=== PATIENT | female | born 1980 | race Caucasian/White ===

== ENCOUNTER 2020-01-20 15:27 | Emergency (ER) | payer OTHER ==
--- NOTE | 2020-01-20 16:11 | EDM.PDOC ---
ED HPI GENERAL MEDICAL PROBLEM - General Chief Complaint: Flank Pain Stated Complaint: POSSIBLE KIDNEY STONES Time Seen by Provider: 01/20/20 15:45 Source of Information: Reports: Patient History Limitations: Reports: No Limitations - History of Present Illness INITIAL COMMENTS - FREE TEXT/NARRATIVE: 39-year-old female with a history of renal stones, lithotripsy x2, developed right flank plain just under 24 hours ago that was a "10" for several hours. Today the pain is been waxing and waning with nausea and vomiting, some urinary urgency but no dysuria, no fevers or chills. The pain is in the right flank and radiates around to the lower right abdomen. She is not Onset: Sudden (Sudden onset about 24 hours ago) Location: Reports: Other (Right flank and right lower abdomen) Associated Symptoms: Reports: Nausea/Vomiting Right Flank Pain Score (Numeric/FACES): 3 - Related Data Allergies Allergy/AdvReac Type Severity Reaction Status Date / Time cefoxitin [From Mefoxin] Allergy Itching Verified 01/20/20 15:45 codeine Allergy Airway Verified 01/20/20 15:45 Tightness Home Meds: Home Meds Albuterol [Ventolin HFA] 2 puff IH Q4HR PRN 01/20/20 [History] Past Medical History Cardiovascular History: Reports: Other (See Below) Other Cardiovascular History: occ pvc Respiratory History: Reports: Asthma Gastrointestinal History: Reports: Cholelithiasis SINK CUTTER History: Reports: Endometriosis Other SINK CUTTER History: breast reduction Neurological History: Reports: Migraines Dermatologic History: Reports: Eczema - Past Surgical History GI Surgical History: Reports: Cholecystectomy Female Surgical History: Reports: Section, Lithotripsy/ESWL Social & Family History - Tobacco Use Smoking Status *Q: Never Smoker - Caffeine Use Caffeine Use: Reports: Coffee - Recreational Drug Use Recreational Drug Use: No ED ROS GENERAL - Review of Systems Review Of Systems: See Below Constitutional: Reports: Malaise. Denies: Fever, Chills HEENT: Reports: No Symptoms Respiratory: Denies: Shortness of Breath Cardiovascular: Denies: Chest Pain GI/Abdominal: Reports: Abdominal Pain, Nausea, Vomiting. Denies: Diarrhea : Reports: Flank Pain, Urgency. Denies: Dysuria, Frequency, Hematuria, Incontinence Musculoskeletal: Reports: No Symptoms Skin: Reports: No Symptoms Neurological: Denies: Headache ED EXAM, GENERAL - Physical Exam Exam: See Below Exam Limited By: No Limitations General Appearance: Alert, No Apparent Distress Head: Atraumatic Respiratory/Chest: No Respiratory Distress, Lungs Clear Cardiovascular: Regular Rate, Rhythm GI/Abdominal: Non-Tender Back Exam: No: CVA Tenderness (R), CVA Tenderness (L) Neurological: Alert, Oriented Psychiatric: Normal Affect, Normal Mood Skin Exam: Warm, Dry Course - Vital Signs Last Recorded V/S: Last Vital Signs Temp 97.9 F 01/20/20 15:42 Pulse 95 01/20/20 15:42 Resp 16 01/20/20 15:42 BP 146/84 H 01/20/20 15:42 Pulse Ox 97 01/20/20 15:42 - Orders/Labs/Meds Labs: Laboratory Tests 01/20/20 Range/Units 16:08 Urine Color Yellow (YELLOW) Urine Appearance Clear (CLEAR) Urine pH 6.5 (5.0-8.0) Ur Specific [place] 1.025 (1.008-1.030) Urine Protein Negative (NEGATIVE) mg/dL Urine Glucose (UA) Negative (NEGATIVE) mg/dL Urine Ketones Negative (NEGATIVE) mg/dL Urine Occult Blood Moderate H (NEGATIVE) Urine Nitrite Negative (NEGATIVE) Urine Bilirubin Negative (NEGATIVE) Urine Urobilinogen 0.2 (0.2-1.0) EU/dL Ur Leukocyte Esterase Negative (NEGATIVE) Urine RBC 20-30 H (0-5) Urine WBC 5-10 H (0-5) Ur Epithelial Cells Moderate Amorphous Sediment Not seen Urine Bacteria Few Urine Mucus Few Meds: Medications Discontinued Medications Generic Name Dose Route Start Last Admin Trade Name Keri PRN Reason Stop Dose Admin Tamsulosin HCl 0.4 mg 01/20/20 16:56 01/20/20 16:59 Flomax PO 01/20/20 16:57 0.4 mg ONETIME ONE Administration - Re-Assessments/Exams Free Text/Narrative Re-Assessment/Exam: 01/20/20 16:11 A UA was collected and a CT of the abdomen and pelvis without contrast will be obtained. 01/20/20 17:38 IMPRESSION: 1. Acutely obstructing 9 x 6 x 6 mm distal right ureteral stone within 1 cm of the UVJ. 2. Renal collecting system stone bilaterally, as above. 3. Post cholecystectomy. UA was positive for small amount of blood but no infection. CT findings are as above. Patient was given 1 Flomax, 5 additional doses of Zofran and will recheck in 2 to 3 days if not improved. Departure - Departure Time of Disposition: 17:21 Disposition: Home, Self-Care 01 Clinical Impression: Ureteric colic, Left nephrolithiasis Hydronephrosis Qualifiers: Hydronephrosis type: with ureteral calculous obstruction Qualified Code(s): N13.2 - Hydronephrosis with renal and ureteral calculous obstruction - Discharge Information Instructions: Kidney Stones, [id number] Referrals: Seymour Paige MD [Primary Care Provider] - Forms: ED Department Discharge Care Plan Goals: Take ibuprofen for pain, Zofran for nausea and vomiting and consider rechecking in 2 to 3 days if not improving satisfactorily. Return anytime if worsening despite treatment. Sepsis Event Note - Evaluation Sepsis Screening Result: No Definite Risk - Focused Exam Vital Signs: Vital Signs Temp Pulse Resp BP Pulse Ox 01/20/20 15:42 97.9 F 95 16 146/84 H 97 Date Exam was Performed: 01/20/20 Time Exam was Performed: 17:40
[2020-01-20] MEDS ORDERED: Tamsulosin 0.4 MG Cap.ER PO ONE (16:56)
--- NOTE | 2020-01-20 17:17 | CRLCT ---
INDICATION: Flank pain. TECHNIQUE: Volumetric helical scanning of the abdomen pelvis was performed without IV contrast material. Coronal sagittal reconstructions were obtained. FINDINGS: Acutely obstructing 9 x 6 x 6 mm distal right ureteral stones demonstrated within 1 cm of the ureterovesical junction. Moderate right hydroureter and hydronephrosis is demonstrated as well as right periureteral and perinephric stranding. An additional 9 mm stone is present in the right renal collecting system along with 3 additional stones measuring 3 mm or less in size. Several 2 mm stones noted in the left renal collecting system. The kidneys are otherwise unremarkable. The bladder is grossly negative. The uterus and ovaries are grossly negative. No free fluid is evident. The liver is normal in size, shape and attenuation. Post op changes of cholecystectomy are demonstrated. No bile duct dilation is evident. The spleen is within normal limits. The adrenal glands are unremarkable. The pancreas is within normal limits. No lymphadenopathy is evident. The bowel is unremarkable. The lung bases are clear. The heart is normal in size. IMPRESSION: 1. Acutely obstructing 9 x 6 x 6 mm distal right ureteral stone within 1 cm of the UVJ. 2. Renal collecting system stone bilaterally, as above. 3. Post cholecystectomy. Please note that all CT scans at this facility use dose modulation, iterative reconstruction, and/or weight-based dosing when appropriate to reduce radiation dose to as low as reasonably achievable. Dictated by Ravinder Nelson MD @ Jan 20 2020 5:03PM Signed by Dr. Ravinder Nelson @ Jan 20 2020 5:16PM
== END 2020-01-20 17:28 | disposition home or self-care (01) ==
LOC: JP.ED 15:27
DX: N13.2 Hydronephrosis with renal and ureteral calculous obstruction (principal); J45.909 Unspecified asthma, uncomplicated; Z87.442 Personal history of urinary calculi; Z88.1 Allergy status to other antibiotic agents; Z88.5 Allergy status to narcotic agent
CPT/HCPCS: 74176; 81001; 99284; A9270

== ENCOUNTER 2023-08-14 00:18 | Emergency (ER) | payer OTHER ==
[2023-08-14] MEDS ORDERED: Sodium Chloride 0.9% 10 ML Syringe FLUSH PRN (00:43)
[2023-08-14] MEDS ORDERED: EPINEPHrine 1 MG/ML SDV IM ONE (00:43)
[2023-08-14] MEDS ORDERED: methylPREDNISolone Sodium Succinate 125 MG/2 ML SDV IV ONE (00:43)
== END 2023-08-14 03:23 | disposition home or self-care (01) ==
LOC: JP.ED 00:18
DX: T78.40XA Allergy, unspecified, initial encounter (principal); J45.909 Unspecified asthma, uncomplicated; Z79.899 Other long term (current) drug therapy; Z88.0 Allergy status to penicillin; Z88.5 Allergy status to narcotic agent; Z91.018 Allergy to other foods
CPT/HCPCS: 96372; 96374; 99283; J0171; J2930; J3490

== ENCOUNTER 2023-09-18 20:32 | Emergency (ER) | payer OTHER ==
[2023-09-18] MEDS: methylPREDNISolone Sodium Succinate 125 MG/2 ML SDV IVPUSH ONE (21:00)
== END 2023-09-18 21:39 | disposition home or self-care (01) ==
LOC: JP.ED 20:32
DX: R59.0 Localized enlarged lymph nodes (principal); T78.1XXA Other adverse food reactions, not elsewhere classified, initial encounter; J45.909 Unspecified asthma, uncomplicated; Z79.899 Other long term (current) drug therapy; Z88.5 Allergy status to narcotic agent; Z91.018 Allergy to other foods; Z88.0 Allergy status to penicillin
CPT/HCPCS: 96374; 99283; J2930

== ENCOUNTER 2023-09-29 19:03 | Emergency (ER) | payer OTHER ==
[2023-09-29] MEDS ORDERED: Acyclovir 200 MG Cap PO ONE (19:59)
== END 2023-09-29 20:14 | disposition home or self-care (01) ==
LOC: JP.ED 19:03
DX: B00.1 Herpesviral vesicular dermatitis (principal); J45.909 Unspecified asthma, uncomplicated; Z90.49 Acquired absence of other specified parts of digestive tract; Z79.899 Other long term (current) drug therapy; Z91.048 Other nonmedicinal substance allergy status; Z88.5 Allergy status to narcotic agent; Z88.8 Allergy status to other drugs, medicaments and biological substances
CPT/HCPCS: 99283; A9270

== ENCOUNTER 2024-02-05 11:25 | Emergency (ER) | payer OTHER ==
[2024-02-05 14:41] LABS: APPEARANCE,URINE CLEAR (CLEAR); BILIRUBIN,URINE NEGATIVE (NEGATIVE); COLOR,URINE YELLOW (YELLOW); GLUCOSE,URINE NEGATIVE (NEGATIVE); KETONES,URINE NEGATIVE (NEGATIVE); LEUKOCYTE ESTERASE,URINE NEGATIVE (NEGATIVE); NITRITE,URINE NEGATIVE (NEGATIVE); OCCULT BLOOD,URINE NEGATIVE (NEGATIVE); PROTEIN,URINE NEGATIVE (NEGATIVE); UROBILINOGEN,URINE 0.2 EU/dL (0.2-1.0)
[2024-02-05 14:43] LABS: BASOPHILS ABSOLUTE AUTO 0.04 K/uL (0.00-0.10); BASOPHILS PERCENT AUTO 0.5 % (0.1-1.3); EOSINOPHILS PERCENT AUTO 0.1 % (0.0-5.4); HEMATOCRIT 39.4 % (34.3-46.0); IMMATURE GRAN ABSOLUTE AUTO 0.03 K/uL (0.00-0.23); IMMATURE GRAN PERCENT AUTO 0.4 % (0.0-0.7); LYMPHOCYTES ABSOLUTE AUTO 0.59 K/uL (0.8-3.3); LYMPHOCYTES PERCENT AUTO 7.4 % (11.4-47.7); MEAN CORPUSCULAR HEMOGLOBIN 26.4 pg (31.6-35.5); MEAN CORPUSCULAR VOLUME 80.1 fL (81.4-99.0); MONOCYTES ABSOLUTE AUTO 0.62 K/uL (0.20-0.90); MONOCYTES PERCENT AUTO 7.8 % (3.3-12.6); NEUTROPHILS ABSOLUTE AUTO 6.69 K/uL (1.0-7.6); NEUTROPHILS PERCENT AUTO 83.8 % (40.0-78.1); PLATELET COUNT,PLT 183 K/uL (130-375); RED BLOOD CELL COUNT 4.92 M/uL (3.77-5.24)
[2024-02-05] MEDS: Sodium Chloride 0.9% 1,000 ML IV STA (14:45)
[2024-02-05 14:47] LABS: EOSINOPHILS ABSOLUTE AUTO 0.01 K/uL (0.00-0.40)
[2024-02-05 14:47] LABS: AMORPHOUS SEDIMENT,URINE NOT SEEN; BACTERIA,URINE RARE; EPITHELIAL CELLS,URINE NOT SEEN; MUCUS,URINE NOT SEEN; RBC,URINE 0-5 (0-5); WBC,URINE 0-5 (0-5)
[2024-02-05 15:07] LABS: A/G RATIO 0.9 (1.2-2.2); ALANINE AMINOTRANSFERASE,ALT 18 U/L (12-78); ALBUMIN 3.6 g/dL (3.4-5.0); ALKALINE PHOSPHATASE 132 U/L (46-116); ANION GAP 14.9 mmol/L (5.0-14.0); ASPARTATE AMNIOTRANSFERASE,AST 18 U/L (15-37); BILIRUBIN TOTAL 1.5 mg/dL (0.2-1.0); BLOOD UREA NITROGEN,BUN 11 mg/dL (7-18); C-REACTIVE PROTEIN 6.15 mg/dL (<0.50); CALCIUM 8.8 mg/dL (8.5-10.1); CARBON DIOXIDE,CO2 26 mmol/L (21-32); CHLORIDE,CL 99 mmol/L (100-108); CREATININE 0.9 mg/dL (0.6-1.0); ESTIMATED GFR 81 mL/min (>60); GLUCOSE RANDOM 107 mg/dL (74-106); POTASSIUM,K 3.9 mmol/L (3.6-5.2); PROTEIN TOTAL,TP 7.7 g/dL (6.4-8.2); SODIUM,NA 136 mmol/L (140-148)
[2024-02-05] MEDS: Sodium Chloride 0.9% 100 ML IV ONE (15:29)
[2024-02-05] MEDS: Iopamidol 612 MG/ML 100 ML Bottle IV ONE (15:29)
[2024-02-05] MEDS: Sodium Chloride 0.9% 10 ML Syringe FLUSH ONE (15:29)
[2024-02-05] MEDS: Sodium Chloride 0.9% 10 ML Syringe FLUSH PRN (16:12)
== END 2024-02-05 22:15 | disposition home or self-care (01) ==
LOC: JP.ED 11:25
DX: N83.202 Unspecified ovarian cyst, left side (principal); J45.909 Unspecified asthma, uncomplicated; Z91.018 Allergy to other foods; Z88.5 Allergy status to narcotic agent; Z88.1 Allergy status to other antibiotic agents; Z79.51 Long term (current) use of inhaled steroids; Z86.19 Personal history of other infectious and parasitic diseases; Z90.49 Acquired absence of other specified parts of digestive tract
CPT/HCPCS: 36415; 74177; 76830; 76856; 80053; 81001; 83605; 83690; 84145; 85025; 86140; 87651; 99284; J3490; J7030; Q9967

== ENCOUNTER 2025-07-04 01:09 | Emergency (ER) | payer OTHER ==
[2025-07-04 02:02] LABS: BASOPHILS ABSOLUTE AUTO 0.04 K/uL (0.00-0.10); BASOPHILS PERCENT AUTO 0.6 % (0.1-1.3); EOSINOPHILS ABSOLUTE AUTO 0.13 K/uL (0.00-0.40); EOSINOPHILS PERCENT AUTO 1.9 % (0.0-5.4); IMMATURE GRAN PERCENT AUTO 0.3 % (0.0-0.7); LYMPHOCYTES ABSOLUTE AUTO 2.42 K/uL (0.8-3.3); LYMPHOCYTES PERCENT AUTO 35.7 % (11.4-47.7); MONOCYTES ABSOLUTE AUTO 0.60 K/uL (0.20-0.90); MONOCYTES PERCENT AUTO 8.9 % (3.3-12.6); NEUTROPHILS ABSOLUTE AUTO 3.56 K/uL (1.0-7.6); NEUTROPHILS PERCENT AUTO 52.6 % (40.0-78.1); PLATELET COUNT,PLT 209 K/uL (130-375); RED BLOOD CELL COUNT 4.74 M/uL (3.77-5.24); WHITE BLOOD CELL COUNT,WBC 6.8 K/uL (3.2-11.0)
[2025-07-04 02:06] LABS: IMMATURE GRAN ABSOLUTE AUTO 0.02 K/uL (0.00-0.23)
[2025-07-04 02:21] LABS: BLOOD UREA NITROGEN,BUN 15 mg/dL (7-18); CARBON DIOXIDE,CO2 28 mmol/L (21-32); CHLORIDE,CL 105 mmol/L (100-108); CREATININE 0.7 mg/dL (0.6-1.0); ESTIMATED GFR 109 mL/min (>60); GLUCOSE RANDOM 102 mg/dL (74-106); POTASSIUM,K 3.6 mmol/L (3.6-5.2); SODIUM,NA 142 mmol/L (140-148); TROPONIN I HIGH SENSITIVITY 5.5 pg/mL (<=60.3)
[2025-07-04] MEDS: Ondansetron 4 MG Tab.DIS PO ONE (03:11)
== END 2025-07-04 03:12 | disposition home or self-care (01) ==
LOC: JP.ED 01:09
DX: R00.2 Palpitations (principal); J45.909 Unspecified asthma, uncomplicated; Z88.5 Allergy status to narcotic agent; Z91.018 Allergy to other foods; Z79.899 Other long term (current) drug therapy
CPT/HCPCS: 36415; 80048; 84484; 85025; 85379; 93005; 93010; 99283; 99285

== ENCOUNTER 2025-07-19 06:05 | Emergency (ER) | payer OTHER ==
[2025-07-19 06:42] LABS: BASOPHILS ABSOLUTE AUTO 0.04 K/uL (0.00-0.10); BASOPHILS PERCENT AUTO 0.5 % (0.1-1.3); EOSINOPHILS ABSOLUTE AUTO 0.10 K/uL (0.00-0.40); EOSINOPHILS PERCENT AUTO 1.3 % (0.0-5.4); IMMATURE GRAN ABSOLUTE AUTO 0.03 K/uL (0.00-0.23); IMMATURE GRAN PERCENT AUTO 0.4 % (0.0-0.7); LYMPHOCYTES ABSOLUTE AUTO 1.84 K/uL (0.8-3.3); LYMPHOCYTES PERCENT AUTO 24.5 % (11.4-47.7); MONOCYTES ABSOLUTE AUTO 0.57 K/uL (0.20-0.90); MONOCYTES PERCENT AUTO 7.6 % (3.3-12.6); NEUTROPHILS ABSOLUTE AUTO 4.92 K/uL (1.0-7.6); NEUTROPHILS PERCENT AUTO 65.7 % (40.0-78.1); PLATELET COUNT,PLT 196 K/uL (130-375); RED BLOOD CELL COUNT 4.85 M/uL (3.77-5.24); WHITE BLOOD CELL COUNT,WBC 7.5 K/uL (3.2-11.0)
[2025-07-19 06:55] LABS: A/G RATIO 1.0 (1.2-2.2); ALANINE AMINOTRANSFERASE,ALT 27 U/L (12-78); ASPARTATE AMNIOTRANSFERASE,AST 21 U/L (15-37); BILIRUBIN TOTAL 0.6 mg/dL (0.2-1.0); BLOOD UREA NITROGEN,BUN 13 mg/dL (7-18); CARBON DIOXIDE,CO2 26 mmol/L (21-32); CHLORIDE,CL 104 mmol/L (100-108); CREATININE 0.7 mg/dL (0.6-1.0); EST CRCL DRUG DOSING (CG) 87.64 mL/min; ESTIMATED GFR 109 mL/min (>60); GLUCOSE RANDOM 106 mg/dL (74-106); POTASSIUM,K 3.6 mmol/L (3.6-5.2); PROTEIN TOTAL,TP 7.5 g/dL (6.4-8.2); SODIUM,NA 141 mmol/L (140-148); TROPONIN I HIGH SENSITIVITY 8.1 pg/mL (<=60.3)
[2025-07-19] MEDS: Sodium Chloride 0.9% 10 ML Syringe FLUSH ONE (10:29)
[2025-07-19] MEDS: Iopamidol 612 MG/ML 100 ML Bottle IV PRN (10:29)
== END 2025-07-19 14:24 ==
LOC: JP.ED 06:05
DX: I35.1 Nonrheumatic aortic (valve) insufficiency (principal); I77.819 Aortic ectasia, unspecified site; Z91.018 Allergy to other foods; Z88.1 Allergy status to other antibiotic agents; Z88.5 Allergy status to narcotic agent; Z79.899 Other long term (current) drug therapy
CPT/HCPCS: 36415; 71045; 71045-26; 71275; 71275-26; 80053; 84484; 85025; 85379; 93005; 93010; 99285; Q9967

== ENCOUNTER 2025-08-18 08:42 | Emergency (ER) | payer OTHER ==
[2025-08-18] MEDS ORDERED: Naloxone 0.4 MG/ML SDV IVPUSH PRN (09:20)
[2025-08-18] MEDS ORDERED: fentaNYL 50 MCG/ML SDV IVPUSH PRN (09:20)
[2025-08-18 09:53] LABS: BASE EXCESS VENOUS -0.4 mm/L; BASOPHILS ABSOLUTE AUTO 0.06 K/uL (0.00-0.10); BASOPHILS PERCENT AUTO 0.5 % (0.1-1.3); BICARBONATE,VENOUS 23.4 mmol/L; EOSINOPHILS ABSOLUTE AUTO 0.43 K/uL (0.00-0.40); EOSINOPHILS PERCENT AUTO 3.9 % (0.0-5.4); IMMATURE GRAN ABSOLUTE AUTO 0.08 K/uL (0.00-0.23); IMMATURE GRAN PERCENT AUTO 0.7 % (0.0-0.7); LYMPHOCYTES ABSOLUTE AUTO 1.15 K/uL (0.8-3.3); LYMPHOCYTES PERCENT AUTO 10.4 % (11.4-47.7); MONOCYTES ABSOLUTE AUTO 0.60 K/uL (0.20-0.90); MONOCYTES PERCENT AUTO 5.4 % (3.3-12.6); NEUTROPHILS ABSOLUTE AUTO 8.77 K/uL (1.0-7.6); NEUTROPHILS PERCENT AUTO 79.1 % (40.0-78.1); O2 SATURATION VENOUS 68.4; OXYHEMOGLOBIN 66.3 %; PCO2 VENOUS 37.6 mm/Hg; PH,VENOUS 7.411 (7.350-7.450); PLATELET COUNT,PLT 330 K/uL (130-375); PO2 VENOUS 39.4 mm/Hg; RED BLOOD CELL COUNT 3.62 M/uL (3.77-5.24); TOTAL HEMOGLOBIN 10.6 g/dL (12.0-16.0); WHITE BLOOD CELL COUNT,WBC 11.1 K/uL (3.2-11.0)
[2025-08-18 10:12] LABS: INR 1.1
[2025-08-18 10:22] LABS: A/G RATIO 0.8 (1.2-2.2); ALANINE AMINOTRANSFERASE,ALT 17 U/L (12-78); ASPARTATE AMNIOTRANSFERASE,AST 16 U/L (15-37); BILIRUBIN TOTAL 0.5 mg/dL (0.2-1.0); BLOOD UREA NITROGEN,BUN 16 mg/dL (7-18); CARBON DIOXIDE,CO2 25 mmol/L (21-32); CHLORIDE,CL 102 mmol/L (100-108); CREATININE 0.8 mg/dL (0.6-1.0); EST CRCL DRUG DOSING (CG) 79.07 mL/min; ESTIMATED GFR 92 mL/min (>60); GLUCOSE RANDOM 129 mg/dL (74-106); POTASSIUM,K 3.9 mmol/L (3.6-5.2); PRO B-TYPE NATRIUR PEPT,BNPPRO 1571 pg/mL (5-125); PROTEIN TOTAL,TP 7.6 g/dL (6.4-8.2); SODIUM,NA 138 mmol/L (140-148)
[2025-08-18 10:25] LABS: TSH ULTRASENSITIVE 1.116 uIU/mL (0.358-3.740)
[2025-08-18 10:30] LABS: TROPONIN I HIGH SENSITIVITY 67.7 pg/mL (<=60.3)
[2025-08-18] MEDS: Iopamidol 755 Mg/ML 100 ML Bottle IV ONE (13:27)
[2025-08-18] MEDS: Sodium Chloride 0.9% 10 ML Syringe FLUSH ONE (13:27)
== END 2025-08-18 14:30 | disposition home or self-care (01) ==
LOC: JP.ED 08:42
DX: G89.18 Other acute postprocedural pain (principal); E66.9 Obesity, unspecified; J45.909 Unspecified asthma, uncomplicated; Z79.899 Other long term (current) drug therapy; Z88.8 Allergy status to other drugs, medicaments and biological substances; Z91.018 Allergy to other foods; Z86.16 Personal history of COVID-19; Z90.49 Acquired absence of other specified parts of digestive tract; Z90.710 Acquired absence of both cervix and uterus; Z68.41 Body mass index [BMI] 40.0-44.9, adult
CPT/HCPCS: 36415; 71045; 71275; 80053; 82803; 83605; 83880; 84443; 84484; 85025; 85379; 85610; 93005; 99285; Q9967

== ENCOUNTER 2025-09-23 01:54 | Emergency (ER) | payer OTHER ==
[2025-09-23] MEDS: Ketorolac 30 MG/ML SDV IVPUSH ONE (02:41)
[2025-09-23] MEDS: Ondansetron 4 MG/2 ML SDV IVPUSH ONE (02:44)
[2025-09-23 02:49] LABS: BASOPHILS ABSOLUTE AUTO 0.04 K/uL (0.00-0.10); BASOPHILS PERCENT AUTO 0.2 % (0.1-1.3); EOSINOPHILS PERCENT AUTO 0.1 % (0.0-5.4); IMMATURE GRAN ABSOLUTE AUTO 0.09 K/uL (0.00-0.23); IMMATURE GRAN PERCENT AUTO 0.5 % (0.0-0.7); LYMPHOCYTES ABSOLUTE AUTO 1.62 K/uL (0.8-3.3); LYMPHOCYTES PERCENT AUTO 9.9 % (11.4-47.7); MONOCYTES ABSOLUTE AUTO 0.68 K/uL (0.20-0.90); MONOCYTES PERCENT AUTO 4.1 % (3.3-12.6); NEUTROPHILS ABSOLUTE AUTO 13.95 K/uL (1.0-7.6); NEUTROPHILS PERCENT AUTO 85.2 % (40.0-78.1); PLATELET COUNT,PLT 286 K/uL (130-375); RED BLOOD CELL COUNT 4.71 M/uL (3.77-5.24); WHITE BLOOD CELL COUNT,WBC 16.4 K/uL (3.2-11.0)
[2025-09-23 02:50] LABS: APPEARANCE,URINE CLOUDY (CLEAR); GLUCOSE,URINE NEGATIVE (NEGATIVE); OCCULT BLOOD,URINE TRACE-INTACT (NEGATIVE)
[2025-09-23 03:06] LABS: BLOOD UREA NITROGEN,BUN 14.0 mg/dL (7-18); CARBON DIOXIDE,CO2 26.0 mmol/L (21-32); CHLORIDE,CL 103.0 mmol/L (100-108); CREATININE 0.9 mg/dL (0.6-1.0); EOSINOPHILS ABSOLUTE AUTO 0.02 K/uL (0.00-0.40); EST CRCL DRUG DOSING (CG) 70.28 mL/min; ESTIMATED GFR 80.0 mL/min (>60); GLUCOSE RANDOM 133.0 mg/dL (74-106); POTASSIUM,K 3.8 mmol/L (3.6-5.2); SODIUM,NA 140.0 mmol/L (140-148)
[2025-09-23 03:15] LABS: SQUAMOUS EPITHELIAL CELLS,UR RARE /HPF; UROTHELIAL CELLS,URINE NOT SEEN /HPF
== END 2025-09-23 04:23 | disposition home or self-care (01) ==
LOC: JP.ED 01:54
DX: N13.2 Hydronephrosis with renal and ureteral calculous obstruction (principal); J45.909 Unspecified asthma, uncomplicated; E66.9 Obesity, unspecified; Z91.018 Allergy to other foods; Z88.5 Allergy status to narcotic agent; Z88.8 Allergy status to other drugs, medicaments and biological substances; Z79.82 Long term (current) use of aspirin; Z79.899 Other long term (current) drug therapy; Z90.89 Acquired absence of other organs; Z90.49 Acquired absence of other specified parts of digestive tract; Z68.41 Body mass index [BMI] 40.0-44.9, adult
CPT/HCPCS: 36415; 74176; 80048; 81001; 83605; 85025; 96374; 96375; 99284; J1885; J2405